=== PATIENT | female | born 1935 | race Caucasian/White ===

== ENCOUNTER → 2017-10-26 | Outpatient (CLI) | payer MEDICARE, BC ==
[~2017-10-26] MED LIST: OPTIVITE; SYNTHROID0.112 MG/T PO; SYNTHROID0.125 MG/T PO
== END ==
LOC: COL.RAD 11:22
DX: M79.642 Pain in left hand (principal); M79.641 Pain in right hand
CPT/HCPCS: J3301; Q9967

== ENCOUNTER 2018-09-01 10:30 | Emergency (ER) | payer MEDICARE, BC ==
[~2018-09-01] VITALS: Ht 152.4 cm; Wt 59.3 kg
[2018-09-01 10:38] VITALS: TEMP 98.2
[2018-09-01] MEDS ORDERED: OCUVITE1 TA1 PO (10:56)
[2018-09-01 11:50] LABS: BASO % 0.7 % (0.0-2.0); EOS % 0.2 % (0-4.0); GRAN # 2.4 (1.4-6.5); GRAN % 60.5 % (42.2-75.2); HEMOGLOBIN 12.5 g/dl (12.5-16.0); LYMPH % 24.4 % (20.0-51.0); MEAN CELL VOLUME 103 fl (80.0-100.0); MEAN CORPUSCULAR HEMOGLOBIN 35 pg (27.0-31.0); MEAN CORPUSCULAR HGB CONC 35 g/dl (33.0-37.0); MEAN PLATELET VOLUME 9.3 fl (7.4-10.4); MONO # 0.6 (0.1-0.6); PLATELET COUNT 161 K/mm3 (130-400); RED BLOOD COUNT 3.53 M/mm3 (4.10-5.30); REDCELL DISTRIBUTION WIDTH-CV 14.3 % (11.5-14.5)
[2018-09-01 11:51] LABS: HEMATOCRIT 36.2 % (37.0-47.0)
[2018-09-01 12:04] LABS: COLLECTION METHOD CLEAN CATCH
[2018-09-01] MEDS ORDERED: NEURONTIN300 MG/CAP PO ×2 (12:07)
[2018-09-01 12:10] LABS: MUCOUS Present /lpf; PH 8 (5-8); SQUAMOUS EPITHELIAL 0-2 /hpf; URINE APPEARANCE Clear; URINE BACTERIA None Seen /hpf; URINE BILIRUBIN Negative (NEGATIVE); URINE BLOOD Negative (NEGATIVE); URINE COLOR Yellow; URINE GLUCOSE Negative (NEGATIVE); URINE KETONE Negative (NEGATIVE); URINE LEUKOCYTE ESTERASE Trace (NEGATIVE); URINE NITRATE Negative (NEGATIVE); URINE PROTEIN(semi-quant) Negative (NEGATIVE); URINE RBC 0-2 /hpf; URINE UROBILINOGEN Negative (NEGATIVE)
[2018-09-01 12:14] LABS: ALBUMIN 3.8 gm/dL (3.5-5.0); CALCIUM 9.7 mg/dL (8.4-10.2); CREATININE, serum 0.55 mg/dL (0.52-1.25); POTASSIUM 3.5 mmol/L (3.4-5.0); TOTAL PROTEIN 8.5 gm/dL (6.4-8.2)
[2018-09-01] MEDS ORDERED: NORCO 325 MG-51 TAB PO (12:22)
[2018-09-01] MEDS ORDERED: ZOFRAN ODT4 MG PO (12:23)
[2018-09-01] MEDS ORDERED: NEURONTIN100 MG/CAP PO (13:01)
[2018-09-01] MEDS ORDERED: NORCO2.5 PO (14:16)
[2018-09-01 15:25] VITALS: BP 151/73; PULSE 64
== END 2018-09-01 15:20 | disposition home or self-care (01) ==
LOC: COL.ER 10:30
PROVIDERS: Emergency Medicine
DX: B02.29 Other postherpetic nervous system involvement (principal); R10.9 Unspecified abdominal pain; E03.9 Hypothyroidism, unspecified; K21.9 Gastro-esophageal reflux disease without esophagitis
CPT/HCPCS: J2405; J7050

== ENCOUNTER 2019-12-12 17:07 | Inpatient (IN) | payer MEDICARE, BC ==
[~2019-12-12] VITALS: Ht 152.4 cm; Wt 65.5 kg
[~2019-12-12 17:07] MED LIST changes: +NEURONTIN100 MG/CAP PO; +NEURONTIN300 MG/CAP PO; +NORCO 325 MG-51 TAB PO; +NORCO2.5 PO; +OCUVITE1 TA1 PO; +ZOFRAN ODT4 MG PO
[2019-12-12 18:00] LABS: BASO % 0.6 % (0.0-2.0); EOS % 0.8 % (0-4.0); GRAN # 3.2 (1.4-6.5); GRAN % 59.5 % (42.2-75.2); HEMOGLOBIN 12.1 g/dl (12.5-16.0); LYMPH # 1.4 (1.2-3.4); LYMPH % 26.2 % (20.0-51.0); MEAN CELL VOLUME 103 fl (80.0-100.0); MEAN CORPUSCULAR HEMOGLOBIN 36 pg (27.0-31.0); MEAN CORPUSCULAR HGB CONC 35 g/dl (33.0-37.0); MEAN PLATELET VOLUME 9.9 fl (7.4-10.4); MONO # 0.7 (0.1-0.6); MONO % 12.3 % (1.7-9.3); PLATELET COUNT 175 K/mm3 (130-400); RED BLOOD COUNT 3.41 M/mm3 (4.10-5.30); REDCELL DISTRIBUTION WIDTH-CV 14.8 % (11.5-14.5)
[2019-12-12 18:01] LABS: HEMATOCRIT 35.1 % (37.0-47.0)
[2019-12-12 18:02] LABS: INR 1.3 (0.8-3.0); PROTHROMBIN TIME 14.2 SECONDS (9.7-12.8)
[2019-12-12 18:55] LABS: ALANINE AMINOTRANSFERASE 22 U/L (4-34); ALBUMIN 3.9 gm/dL (3.5-5.0); ALKALINE PHOSPHATASE 57 U/L (50-136); ANION GAP 6 mmol/L (7-16); AST,SGOT 59 U/L (15-37); BILIRUBIN,TOTAL 0.8 mg/dL (0.0-1.0); BLOOD UREA NITROGEN 11 mg/dL (7-17); CARBON DIOXIDE 28 mmol/L (22-30); CHLORIDE 95 mmol/L (98-107); GLUCOSE 94 mg/dL (74-106); POTASSIUM 3.1 mmol/L (3.4-5.0); SODIUM 129 mmol/L (137-145); TOTAL PROTEIN 8.9 gm/dL (6.4-8.2)
[2019-12-12 19:22] LABS: COLLECTION METHOD CLEAN CATCH
[2019-12-12 19:40] LABS: PH 8 (5-8); SQUAMOUS EPITHELIAL 0-2 /hpf; URINE APPEARANCE Clear; URINE BACTERIA Rare /hpf; URINE BILIRUBIN Negative (NEGATIVE); URINE BLOOD Negative (NEGATIVE); URINE COLOR Straw; URINE GLUCOSE Negative (NEGATIVE); URINE KETONE Negative (NEGATIVE); URINE LEUKOCYTE ESTERASE Negative (NEGATIVE); URINE NITRATE Negative (NEGATIVE); URINE PROTEIN(semi-quant) Negative (NEGATIVE); URINE RBC 0-2 /hpf; URINE UROBILINOGEN Negative (NEGATIVE)
--- NOTE | 2019-12-12 20:10 | NUR ---
Received patient via wheelchair from ER. She is alert and oriented. She uses cane and a standby asssit.On O2 at 2lpm via NC. Patient is a PUI for Covid. Swab done by MARCELA Tate. Denies any pain.
[2019-12-12 20:19] VITALS: BP 154/75; PULSE 61; TEMP 97.5
[2019-12-12 20:24] VITALS: BP 154/75; PULSE 61; TEMP 97.5
[2019-12-12 20:47] LABS: LIPASE 124 U/L (23-300)
[2019-12-12 20:49] LABS: C-REACTIVE PROTEIN < 0.5 mg/dL (0.0-0.9)
[2019-12-12 21:14] LABS: TROPONIN-I < 0.012 ng/mL (0.000-0.035)
--- NOTE | 2019-12-12 23:00 | NUR ---
Patient's IV starts to infiltrate. Bebeto RN, tried to insert but failed. supervisor carding tried and was able to insert on her left forearm.
[2019-12-12 23:08] VITALS: BP 153/75; PULSE 61; TEMP 97.6
[2019-12-13 04:27] VITALS: BP 157/67; PULSE 65; TEMP 97.6
[2019-12-13 07:05] LABS: CALCIUM 8.6 mg/dL (8.4-10.2); CREATININE, serum 0.61 (0.52-1.25); MAGNESIUM 1.9 mg/dL (1.6-2.3); POTASSIUM 3.3 mmol/L (3.4-5.0)
[2019-12-13 07:10] LABS: BASO % 0.5 % (0.0-2.0); EOS % 0.7 % (0-4.0); GRAN # 2.8 (1.4-6.5); GRAN % 66.7 % (42.2-75.2); HEMATOCRIT 34.9 % (37.0-47.0); HEMOGLOBIN 12.3 g/dl (12.5-16.0); LYMPH # 0.9 (1.2-3.4); LYMPH % 21.7 % (20.0-51.0); MEAN CELL VOLUME 103 fl (80.0-100.0); MEAN CORPUSCULAR HEMOGLOBIN 36 pg (27.0-31.0); MEAN CORPUSCULAR HGB CONC 35 g/dl (33.0-37.0); MEAN PLATELET VOLUME 9.6 fl (7.4-10.4); MONO # 0.4 (0.1-0.6); MONO % 9.9 % (1.7-9.3); PLATELET COUNT 162 K/mm3 (130-400); RED BLOOD COUNT 3.38 M/mm3 (4.10-5.30); REDCELL DISTRIBUTION WIDTH-CV 15.1 % (11.5-14.5)
--- NOTE | 2019-12-13 07:19 | NUR ---
Endorsed patient to Tri. Patient states she has backpain because of the bed. She doesn't want to take any meds for pain. She said she needs to reposition herself and so assisted her in sitting on the side of the bed and she did some stretching. She is one assist, using bedside commode. Bed alarm on. Call light within reach.
[2019-12-13 07:28] VITALS: BP 157/75; PULSE 76; TEMP 97.6
--- NOTE | 2019-12-13 10:34 | NUR ---
MIKAL attempted to contact the patient to discuss discharge plan. The patient is on COVID precautions and pending results. The patient did not answer her phone. MIKAL then contacted the patient's daughter, Stefanie (ph#[phone]), to complete intake. The patient lives alone in [place]. Stefanie states that she lives seven doors over from the patient. Stefanie reports that the patient was really dehydrated and needed help getting out of her bed before hospitalization. She has three canes, three walkers, and a wheelchair. The patient's PCP is Dr. Angel Dowd and she receives her medications at [facility]. Stefanie reports no difficulties obtaining her meds. The patient does not have advanced directives in EMR, but Stefanie reports that the patient does have them completed and that she has a copy. She states that her and her sister, Shante Julio, are the patient's DPOA-HC. Stefanie reports that she plans on staying with the patient upon discharge until the patient gets better. MIKAL to ask for PT/OT to be ordered. MIKAL to continue to follow.
[2019-12-13 11:02] VITALS: BP 150/60; PULSE 68; TEMP 97.7
[2019-12-13 17:07] VITALS: BP 157/68; PULSE 68; TEMP 97.6
[2019-12-13 21:48] VITALS: BP 152/70; PULSE 71; TEMP 99.2
[2019-12-13 23:02] VITALS: BP 154/78; PULSE 68; TEMP 98
[2019-12-14 03:25] VITALS: BP 142/84; PULSE 69; TEMP 98.8
--- NOTE | 2019-12-14 05:17 | NUR ---
Patient has rested well throughout the night. Noted to have intermittent confusion this shift. Continues to do well on room air. Fluids continue to right forearm. Patient up with 1 assist from staff to the restroom. Patient has a hard time seeing and needs frequent cues. Remains afebrile. No results from Covid testing as of yet. Patient remembers to utilize the call light about 50% of the time. Bed alarms on. Patient educated frequently to use call light for assistance. Will continue to monitor patient.
[2019-12-14 07:20] LABS: ALBUMIN 3.9 gm/dL (3.5-5.0); BILIRUBIN,TOTAL 0.8 mg/dL (0.0-1.0); CALCIUM 8.8 mg/dL (8.4-10.2); CREATININE, serum 0.56 (0.52-1.25); MAGNESIUM 1.7 mg/dL (1.6-2.3); POTASSIUM 3.3 mmol/L (3.4-5.0); TOTAL PROTEIN 8.6 gm/dL (6.4-8.2)
[2019-12-14 07:21] LABS: BASO % 0.8 % (0.0-2.0); GRAN # 2.6 (1.4-6.5); GRAN % 66.5 % (42.2-75.2); LYMPH # 0.8 (1.2-3.4); LYMPH % 20.8 % (20.0-51.0); MEAN CELL VOLUME 104 fl (80.0-100.0); MEAN CORPUSCULAR HEMOGLOBIN 35 pg (27.0-31.0); MEAN CORPUSCULAR HGB CONC 34 g/dl (33.0-37.0); MEAN PLATELET VOLUME 9.7 fl (7.4-10.4); MONO # 0.4 (0.1-0.6); MONO % 10.4 % (1.7-9.3); PLATELET COUNT 173 K/mm3 (130-400); RED BLOOD COUNT 3.39 M/mm3 (4.10-5.30); REDCELL DISTRIBUTION WIDTH-CV 15.3 % (11.5-14.5)
[2019-12-14 07:29] LABS: HEMATOCRIT 35.3 % (37.0-47.0)
[2019-12-14 08:00] VITALS: BP 149/72; PULSE 68; TEMP 98.3
--- NOTE | 2019-12-14 08:30 | NUR ---
PT PT HAD GOTTEN OUT OF BED AND SET BED ALARM OFF. 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 I EXPLAINED I WOULD BRING HER MEDS AND THAT SHE COULD STAY IN HER GOWN, SHE SAID SHE WANTED PANTS ON EVEN THOUGH SHE ALREADY HAD PANTS ON. SHE SEEMED TO THINK HER DAUGHTER HAD ALREADY BEEN BY TO VISIT HER AND SEEMED SUSPICIOUS TO WHERE I WAS GOING, SHE KEPT ASKING ME WHERE I HAD TO GO TO GET MEDICATIONS AND WHY I WAS LEAVING. PT CALLED DAUGHTER AND ASKED HER TO BRING HER EYE DROPS. PT UNABLE TO TELL ME NAME OF EYE DROP THAT SHE TAKES AT HOME. PT UTILIZES CANE IN THE ROOM, FALL GOWN ON, BED ALARM SET, FALL SIGNS ON DOOR. EDUCATED HER TO USE HER CALL LIGHT WHEN SHE NEEDS TO GET UP INSTEAD OF GETTING UP ON HER OWN. NO OTHER NEEDS AT THIS TIME.
--- NOTE | 2019-12-14 10:54 | NUR ---
PT TRANSFERRED TO ROOM 357 WITH ALL OF HER BELONGINGS
[2019-12-14 16:45] VITALS: BP 173/88; PULSE 74; TEMP 96.6
--- NOTE | 2019-12-14 17:54 | NUR ---
PT DAUGHTER CALLED AND STATED "IF MY MOTHER DOESN'T GET HER EYE DROPS THEN SHE WILL LEAVE AGAINST MEDICAL ADVICE." CALLED DR. AQUINO AND HE SAID IT WAS OK TO CONTINUE HOME MEDICATION. PT TRIED TO LEAVE FLOOR MULTIPLE TIMES, PT FORGETFUL AND CANNOT REMEMBER WHY SHE CANNOT LEAVE. PT NOT NONCOMPLIANT WITH MEDS OR VITAL SIGNS.
--- NOTE | 2019-12-14 20:10 | NUR ---
Patient resting in recliner. Assessment complete. Right lower lobe diminshed otherwise clear. Heart sounds normal. Bowels active x4. Pulses present throughout. Right forarm INT flushed without complications. Patient confused. Requesting to leave AMA. Educated patient on purpose of visit. Family made multiple phone calls to staff regarding patient confusion and drops from home. Drops provided. Patient agrees to stay at this time. Will continue to monitor. Call light in reach. Chair alarm in place.
[2019-12-14 20:23] VITALS: BP 167/74; PULSE 72; TEMP 97.9
[2019-12-14 22:36] VITALS: BP 135/64; PULSE 84; TEMP 98.8
--- NOTE | 2019-12-14 22:49 | NUR ---
Patient assisted to restroom and to bed. Denies other needs at this time. Call light in reach.
--- NOTE | 2019-12-15 01:12 | NUR ---
Up to restroom and returned to bed. Call light in reach.
[2019-12-15 03:49] VITALS: BP 166/74; PULSE 66; TEMP 97.6
--- NOTE | 2019-12-15 04:00 | NUR ---
Assisted to restroom. Denies needs. Call light in reach.
--- NOTE | 2019-12-15 06:26 | NUR ---
Patient confused throughout night and reorientated. Patient request to leave AMA several times. Educated patient on purpose of visit. Agreed to stay. Otherwise uneventful night. Resting in bed this AM. Call light in reach.
--- NOTE | 2019-12-15 07:17 | NUR ---
Reort given to MARCELA Smith
[2019-12-15 07:55] VITALS: BP 147/82; PULSE 73; TEMP 98
[2019-12-15 07:55] LABS: BASO % 0.5 % (0.0-2.0); EOS # 0.1 (0.0-0.7); EOS % 2.2 % (0-4.0); GRAN # 2.5 (1.4-6.5); GRAN % 60.5 % (42.2-75.2); HEMATOCRIT 36.6 % (37.0-47.0); HEMOGLOBIN 12.6 g/dl (12.5-16.0); LYMPH # 1.1 (1.2-3.4); LYMPH % 26.2 % (20.0-51.0); MEAN CELL VOLUME 106 fl (80.0-100.0); MEAN CORPUSCULAR HEMOGLOBIN 37 pg (27.0-31.0); MEAN CORPUSCULAR HGB CONC 34 g/dl (33.0-37.0); MEAN PLATELET VOLUME 10.9 fl (7.4-10.4); MONO # 0.4 (0.1-0.6); MONO % 10.4 % (1.7-9.3); PLATELET COUNT 150 K/mm3 (130-400); RED BLOOD COUNT 3.44 M/mm3 (4.10-5.30); REDCELL DISTRIBUTION WIDTH-CV 15.2 % (11.5-14.5)
[2019-12-15 08:02] LABS: CALCIUM 9.1 mg/dL (8.4-10.2); CREATININE, serum 0.58 (0.52-1.25); POTASSIUM 3.5 mmol/L (3.4-5.0); TOTAL PROTEIN 8.8 gm/dL (6.4-8.2)
[2019-12-15] MEDS ORDERED: OMNICEF 300MG300 MG PO (09:12)
--- NOTE | 2019-12-15 10:57 | NUR ---
Manager Sourcing attended clinical rounds with the team and patient to discharge home today. Hospitalist discussed home health but patient declines stating she has not let anyone in her home except for her daughter since . SW met with patient who is ready to go home. SW read IM form alound to patient who verbalized understanding and provided verbal consent as signature. MIKAL placed form in chart and provided copy to patient. MIKAL contacted patient's daughter, Giovanna who advised she can clam picker patient today and plans to stay with her as long as needed. MIKAL provided update to RNSarah on transport. No additional needs at this time.
--- NOTE | 2019-12-15 11:56 | NUR ---
Artificial tears, and two bottle of Primal force medicationn returned to patient. Patient daughter Giovanna was educated about new medication Omnicef 300mg Twice daily. Patient is alert with mild confusion. tolerate ambulation with PT this morning.
--- NOTE | 2019-12-15 13:18 | NUR ---
Patient is alert and mildly confused. Easy to reorient. Patient daughter Giovanna signed discharge paper work.
== END 2019-12-15 12:55 | disposition home or self-care (01) | DRG 194 ==
LOC: COL.ER 17:07 → PEDS 18:41 → MEDICAL 12-14 10:30
PROVIDERS: Emergency Medicine; Student in an Organized Health Care Education/Training Program; ADMIT Internal Medicine
DX: J18.1 Lobar pneumonia, unspecified organism (principal); E87.1 Hypo-osmolality and hyponatremia; Z20.828 Contact with and (suspected) exposure to other viral communicable diseases; E87.6 Hypokalemia; R53.81 Other malaise; E03.9 Hypothyroidism, unspecified; H35.30 Unspecified macular degeneration; Z96.653 Presence of artificial knee joint, bilateral; R09.02 Hypoxemia; E86.9 Volume depletion, unspecified; Z90.49 Acquired absence of other specified parts of digestive tract
CPT/HCPCS: 99222-AI; 99232-AI; 99239; J0696; J1650; J7030

== ENCOUNTER → 2020-11-19 | Outpatient (CLI) | payer MEDICARE, BC ==
[~2020-11-19] MED LIST changes: +OMNICEF 300MG300 MG PO
== END ==
LOC: COL.RAD 10:54
DX: S32.019A Unspecified fracture of first lumbar vertebra, initial encounter for closed fracture (principal); S32.049A Unspecified fracture of fourth lumbar vertebra, initial encounter for closed fracture; S22.089A Unspecified fracture of T11-T12 vertebra, initial encounter for closed fracture; Z96.653 Presence of artificial knee joint, bilateral; D47.2 Monoclonal gammopathy

== ENCOUNTER 2021-08-09 17:36 | Emergency (ER) | payer MEDICARE, BC ==
[~2021-08-09] VITALS: Ht 149.9 cm; Wt 57.3 kg
[2021-08-09 17:59] VITALS: TEMP 97.8
[2021-08-09 18:54] LABS: BASO % 0.2 % (0.0-2.0); EOS % 0.6 % (0.0-4.0); GRAN # 2.8 K/mm3 (1.4-6.5); GRAN % 57.5 % (42.2-75.2); HEMATOCRIT 37.7 % (37.0-47.0); HEMOGLOBIN 12.6 g/dl (12.5-16.0); LYMPH # 1.4 K/mm3 (1.2-3.4); MEAN CELL VOLUME 101 fl (80.0-100.0); MEAN CORPUSCULAR HEMOGLOBIN 34 pg (27-31); MEAN CORPUSCULAR HGB CONC 33 g/dl (33.0-37.0); MEAN PLATELET VOLUME 11.3 fl (7.4-10.4); MONO # 0.7 K/mm3 (0.1-0.6); MONO % 13.5 % (1.7-9.3); PLATELET COUNT 132 K/mm3 (130-400); RED BLOOD COUNT 3.72 M/mm3 (4.10-5.30); REDCELL DISTRIBUTION WIDTH-CV 13.1 % (11.5-14.5)
[2021-08-09 19:36] LABS: ALANINE AMINOTRANSFERASE 9 U/L (0-55); ALBUMIN 3.8 gm/dL (3.4-4.8); ALKALINE PHOSPHATASE 34 U/L (40-150); ANION GAP 9 mmol/L (7-16); AST,SGOT 18 U/L (5-34); BILIRUBIN,TOTAL 0.5 mg/dL (0.2-1.2); BLOOD UREA NITROGEN 17 mg/dL (10-20); CALCIUM 8.8 mg/dL (8.4-10.2); CARBON DIOXIDE 25 mmol/L (23-31); CHLORIDE 105 mmol/L (98-107); CREATININE, serum 0.68 mg/dL (0.57-1.11); GLUCOSE 86 mg/dL (70-99); POTASSIUM 3.8 mmol/L (3.5-4.5); SODIUM 139 mmol/L (136-145); TOTAL PROTEIN 8.7 gm/dL (6.2-8.1)
[2021-08-09 19:44] LABS: TROPONIN-I < 0.010 ng/mL (0.00-0.033)
[2021-08-09 22:10] VITALS: BP 170/80; PULSE 64
== END 2021-08-09 22:10 | disposition home or self-care (01) ==
LOC: COL.ER 17:36
PROVIDERS: Student in an Organized Health Care Education/Training Program
DX: R42 Dizziness and giddiness (principal); Z86.73 Personal history of transient ischemic attack (TIA), and cerebral infarction without residual deficits
CPT/HCPCS: Q9967

== ENCOUNTER 2021-09-02 10:29 | Emergency (ER) | payer MEDICARE, BC ==
[~2021-09-02] VITALS: Ht 149.9 cm; Wt 51.8 kg
[2021-09-02 10:37] VITALS: TEMP 97.7
[2021-09-02 11:44] LABS: BASO % 0.2 % (0.0-2.0); EOS % 0.2 % (0.0-4.0); GRAN # 3.8 K/mm3 (1.4-6.5); GRAN % 73.2 % (42.2-75.2); HEMATOCRIT 37.4 % (37.0-47.0); HEMOGLOBIN 12.4 g/dl (12.5-16.0); LYMPH # 0.7 K/mm3 (1.2-3.4); LYMPH % 14.5 % (20.0-51.0); MEAN CELL VOLUME 103 fl (80.0-100.0); MEAN CORPUSCULAR HEMOGLOBIN 34 pg (27-31); MEAN CORPUSCULAR HGB CONC 33 g/dl (33.0-37.0); MEAN PLATELET VOLUME 10.2 fl (7.4-10.4); MONO # 0.6 K/mm3 (0.1-0.6); MONO % 11.9 % (1.7-9.3); PLATELET COUNT 142 K/mm3 (130-400); RED BLOOD COUNT 3.65 M/mm3 (4.10-5.30); REDCELL DISTRIBUTION WIDTH-CV 13.2 % (11.5-14.5)
[2021-09-02 11:50] LABS: INR 1.3 (0.8-3.0)
[2021-09-02 11:53] LABS: PARTIAL THROMBOPLASTIN TIME 26.1 SECONDS (26.0-37.0)
[2021-09-02 12:00] LABS: ALBUMIN 3.7 gm/dL (3.4-4.8); CALCIUM 8.9 mg/dL (8.4-10.2); CREATININE, serum 0.73 mg/dL (0.57-1.11); TOTAL PROTEIN 8.4 gm/dL (6.2-8.1)
[2021-09-02 12:22] LABS: BILIRUBIN,TOTAL 0.6 mg/dL (0.2-1.2)
[2021-09-02 14:22] VITALS: BP 144/69; PULSE 79
== END 2021-09-02 14:56 | disposition home or self-care (01) ==
LOC: COL.ER 10:29
PROVIDERS: Student in an Organized Health Care Education/Training Program
DX: K62.5 Hemorrhage of anus and rectum (principal); Z88.0 Allergy status to penicillin; Z88.1 Allergy status to other antibiotic agents
CPT/HCPCS: Q9967

== ENCOUNTER 2021-10-09 12:33 | Emergency (ER) | payer MEDICARE, BC ==
[~2021-10-09] VITALS: Ht 149.9 cm; Wt 56.8 kg
[2021-10-09 14:20] LABS: ALBUMIN 3.6 gm/dL (3.4-4.8); BILIRUBIN,TOTAL 0.5 mg/dL (0.2-1.2); CALCIUM 9.1 mg/dL (8.4-10.2); CREATININE, serum 0.67 mg/dL (0.57-1.11); POTASSIUM 4.2 mmol/L (3.5-4.5); TOTAL PROTEIN 8.1 gm/dL (6.2-8.1)
[2021-10-09 14:22] LABS: BASO % 0.6 % (0.0-2.0); EOS % 0.6 % (0.0-4.0); GRAN # 3.4 K/mm3 (1.4-6.5); GRAN % 65.8 % (42.2-75.2); LYMPH # 1.1 K/mm3 (1.2-3.4); LYMPH % 21.4 % (20.0-51.0); MEAN CELL VOLUME 102 fl (80.0-100.0); MEAN CORPUSCULAR HEMOGLOBIN 35 pg (27-31); MEAN CORPUSCULAR HGB CONC 34 g/dl (33.0-37.0); MEAN PLATELET VOLUME 10.2 fl (7.4-10.4); MONO # 0.6 K/mm3 (0.1-0.6); MONO % 11.4 % (1.7-9.3); PLATELET COUNT 136 K/mm3 (130-400); RED BLOOD COUNT 3.47 M/mm3 (4.10-5.30); REDCELL DISTRIBUTION WIDTH-CV 13.3 % (11.5-14.5)
[2021-10-09 14:25] LABS: HEMATOCRIT 35.4 % (37.0-47.0)
[2021-10-09 15:21] VITALS: BP 172/70; PULSE 64
== END 2021-10-09 15:21 | disposition home or self-care (01) ==
LOC: COL.ER 12:33
PROVIDERS: Personal Emergency Response Attendant
DX: S63.501A Unspecified sprain of right wrist, initial encounter (principal); S70.01XA Contusion of right hip, initial encounter; D64.9 Anemia, unspecified; W01.198A Fall on same level from slipping, tripping and stumbling with subsequent striking against other object, initial encounter

== ENCOUNTER 2022-02-04 17:07 | Emergency (ER) | payer MEDICARE, BC ==
[~2022-02-04] VITALS: Ht 152.4 cm; Wt 56.4 kg
[2022-02-04 17:32] VITALS: BP 167/71; TEMP 98.1
[2022-02-04 20:06] VITALS: PULSE 60
== END 2022-02-04 20:08 | disposition home or self-care (01) ==
LOC: COL.ER 17:07
DX: S99.922A Unspecified injury of left foot, initial encounter (principal); S89.92XA Unspecified injury of left lower leg, initial encounter; Z28.310 Unvaccinated for COVID-19; W01.0XXA Fall on same level from slipping, tripping and stumbling without subsequent striking against object, initial encounter; Y92.003 Bedroom of unspecified non-institutional (private) residence as the place of occurrence of the external cause